=== PATIENT | female | born 1990 ===

== ENCOUNTER 2018-01-20 22:14 | Emergency (ER) | payer SELFPAY ==
[2018-01-20 22:14] VITALS: BMI 30.2
[2018-01-20 23:27] VITALS: BP 102/65; PULSE 68; RESP 18; TEMP 98.2; O2SAT 100
[2018-01-21 00:50] LABS: BASO % 0.9 % (0.0-2.0); EOS # 0.2 K/uL (0.0-0.7); EOS % 4.2 % (0.0-4.0); HEMOGLOBIN 11.3 g/dL (12.0-16.0); LYMPH % 40.1 % (20.0-40.0); MEAN CELL VOLUME 85.6 fl (81.0-99.0); MEAN CORPUSCULAR HEMOGLOBIN 28.3 pg (27.0-31.0); MEAN CORPUSCULAR HGB CONC 33.1 g/dL (33.0-37.0); MEAN PLATELET VOLUME 8.7 fl (7.2-11.7); MONO # 0.5 K/uL (0.0-0.8); MONO % 9.9 % (0.0-10.0); NEUT # 2.2 K/uL (1.8-7.0); NEUT % 44.9 % (50.0-75.0); NRBC % 0.1 % (0.0-0.0); RBC 3.97 Mil/uL (3.80-5.20); RED CELL DISTRIBUTION WIDTH 15.3 % (11.5-14.5); WHITE BLOOD COUNT 4.9 K/uL (4.8-10.8)
--- NOTE | 2018-01-21 00:56 | ED PDOC ---
HPI: Abdomen Time Seen by Provider: 01/20/18 23:45 Chief Complaint (Nursing): Abdominal Pain Chief Complaint (Provider): Abdominal pain History Per: Patient History/Exam Limitations: no limitations Onset/Duration Of Symptoms: Days, Intermittent Episodes Outside of [place] travel?: No Current Symptoms Are (Timing): Still Present Location Of Pain/Discomfort: LLQ Quality Of Discomfort: "Pain" Associated Symptoms: denies: Nausea, Vomiting, Diarrhea, Urinary Symptoms Additional History Per: Patient Additional Complaint(s): 27yo female, comes to ER reporting left sided abdominal pain, present intermittently x 3 days. She reports the pain is worse with certain movements. Otherwise, patient deneis any associated fever, chills, nausea, vomiting, diarrhea. She also denies any urinary symptoms, pelvic pain, vaginal bleeding or discharge. No additional complaints. PMD: None provided Abnormal Vaginal Bleeding: No Past Medical History Reviewed: Historical Data, Nursing Documentation, Vital Signs Vital Signs: Last Vital Signs Temp 98.2 F 01/20/18 23:25 Pulse 68 01/20/18 23:25 Resp 18 01/20/18 23:25 BP 102/65 01/20/18 23:25 Pulse Ox 100 01/20/18 23:25 - Medical History PMH: No Chronic Diseases - Surgical History Surgical History: (1) - Family History Family History: States: No Known Family Hx - Immunization History Hx Tetanus Toxoid Vaccination: No Hx Influenza Vaccination: No Hx Pneumococcal Vaccination: No - Home Medications Home Medications: Ambulatory Orders Medication Instructions Recorded Acetaminophen [Tylenol] 325 mg PO Q6 PRN #20 tab 12/07/14 RX: Bacitracin 1 gm TOP BID #1 tube 12/07/14 Ibuprofen [Motrin] 600 mg PO Q6 PRN #20 tab 06/10/17 Naproxen [Naprosyn] 500 mg PO Q12 #14 tab 01/21/18 - Allergies Allergies/Adverse Reactions: Allergies Allergy/AdvReac Type Severity Reaction Status Date / Time No Known Allergies Allergy Verified 01/20/18 23:25 Review of Systems ROS Statement: Except As Marked, All Systems Reviewed And Found Negative Constitutional: Negative for: Fever, Chills Gastrointestinal: Positive for: Abdominal Pain. Negative for: Nausea, Vomiting, Diarrhea Genitourinary Female: Negative for: Dysuria, Frequency, Hematuria, Vaginal Discharge, Vaginal Bleeding, Pelvic Pain Physical Exam - Reviewed Nursing Documentation Reviewed: Yes Vital Signs Reviewed: Yes - Physical Exam Appears: Positive for: Non-toxic, No Acute Distress Head Exam: Positive for: ATRAUMATIC, NORMAL INSPECTION, NORMOCEPHALIC Skin: Positive for: Normal Color, Warm, DRY Eye Exam: Positive for: Normal appearance Neck: Positive for: Normal, Painless ROM Cardiovascular/Chest: Positive for: Regular Rate, Rhythm Respiratory: Positive for: CNT, Normal Breath Sounds Gastrointestinal/Abdominal: Positive for: Soft, Tenderness (left lower quadrant tender to palpation). Negative for: Guarding, Rebound Back: Positive for: Normal Inspection. Negative for: L CVA Tenderness Extremity: Positive for: Normal ROM Neurologic/Psych: Positive for: Alert, Oriented. Negative for: Motor/Sensory Deficits - Laboratory Results Result Diagrams: 01/21/18 00:35 01/21/18 00:35 - ECG O2 Sat by Pulse Oximetry: 100 (RA) Pulse Ox Interpretation: Normal Medical Decision Making Medical Decision Making: Impression: 27yo female with left sided abdominal pain Plan: -- US Transvaginal -- Labs -- Toradol 30m IM -- ED Urine 0230 US Transvaginal Findings: The uterus is normal in size measuring 9x4.6x5.8 cm. Anteverted uterus. Endometrium is normal in thickness measuring 9.8 mm. Normal right ovary measuring 3x1.9x1.7 cm. The left ovary measures 2.9x2.5x1.7 cm 1.7 cm left ovarian cyst. Normal bilateral ovarian flow without evidence of ovarian torsion. Impression: Uncomplicated left ovarian cyst. Labs reviewed, patient with no clinically significant abnormalities. On reassessment, patient reports improvement in symptoms and is stable for discharge home. Diagnosis: Ovarian cyst Scribe Attestation: Documented by Adia Krishna, acting as a scribe for Kimo Whatley MD. Provider Scribe Attestation: All medical record entries made by the Scribe were at my direction and personally dictated by me. I have reviewed the chart and agree that the record accurately reflects my personal performance of the history, physical exam, medical decision making, and the department course for this patient. I have also personally directed, reviewed, and agree with the discharge instructions and disposition. Disposition - Clinical Impression Clinical Impression: Ovarian cyst - Disposition Referrals: [facility] [Outside] [facility] [Outside[facility] Disposition: Routine/Home Disposition Time: 02:34 Condition: STABLE Prescriptions: Naproxen [Naprosyn] 500 mg PO Q12 #14 tab Instructions: Ovarian Cysts Forms: [facility] (Divehi) Print Language: HEBREW
[2018-01-21 00:58] LABS: ALB/GLOB RATIO 1.2 (1.0-2.1); ALBUMIN 4.1 g/dL (3.5-5.0); ALT/SGPT 31 U/L (9-52); AST/SGOT 22 U/L (14-36); BLOOD UREA NITROGEN 16 mg/dl (7-17); CALCIUM 9.1 mg/dL (8.4-10.2); GFR NON-AFRICAN AMERICAN > 60
--- NOTE | 2018-01-21 07:55 | US ---
Date of service: 01/21/2018 HISTORY: LLQ pain COMPARISON: None available. TECHNIQUE: Transvaginal FINDINGS: UTERUS: Measures 9.0 x 4.6 x 5.8 cm. Normal in size and anteverted appearance appearance. No fibroid or other mass lesion seen. ENDOMETRIUM: Measures between 7 and 10 mm in diameter. Within normal limits. CERVIX: No cervical abnormality identified. RIGHT OVARY: Measures 3.0 x 1.9 x 1.7 cm. No solid mass. Normal flow. LEFT OVARY: Measures 2.9 x 2.5 x 1.7 cm. No solid mass. Normal flow. 1.7 x 1.2 x 1.2 cm benign physiologic appearing left ovarian follicular cyst. FREE FLUID: No significant free fluid noted. OTHER FINDINGS: None. IMPRESSION: Left ovarian follicular cyst measuring up to 1.7 cm-benign and physiologic appearing Concordant results (preliminary interpretation) provided by [facility].
== END 2018-01-21 03:24 | disposition home or self-care (01) ==
LOC: H.ER 22:14
DX: N83.202 Unspecified ovarian cyst, left side (principal); N85.4 Malposition of uterus
CPT/HCPCS: 76830; 80053; 81025; 85025; 99283; J1885

== ENCOUNTER 2018-02-22 00:55 | Emergency (ER) | payer SELFPAY ==
[2018-02-22 01:15] VITALS: BMI 31.2
[2018-02-22 01:19] VITALS: RESP 16; O2SAT 100
--- NOTE | 2018-02-22 01:45 | ED PDOC ---
HPI: Abdomen Time Seen by Provider: 02/22/18 01:32 Chief Complaint (Nursing): Abdominal Pain Chief Complaint (Provider): Lower abdominal pain History Per: Patient History/Exam Limitations: no limitations Onset/Duration Of Symptoms: Days Current Symptoms Are (Timing): Still Present Location Of Pain/Discomfort: LLQ Associated Symptoms: denies: Fever, Vomiting, Diarrhea, Loss Of Appetite, Back Pain, Chest Pain, Urinary Symptoms Additional Complaint(s): 27yo female comes to the ER for evaluation of left lower abdominal pain, present intermittently for the past 2 months. Patient was seen in this ER on 01/20 for the same symptoms, and was diagnosed with an ovarian cyst after an ultrasound. Patient states her current symptoms are unchanged from prior and she denies any associated fever/chills, nausea, vomiting, diarrhea, urinary symptoms, vaginal bleeding or discharge. Patient states she took 200mg of Motrin at 5pm with no relief of symptoms. PMD: None LMP: 02/06/18 Abnormal Vaginal Bleeding: No Past Medical History Reviewed: Historical Data, Nursing Documentation, Vital Signs Vital Signs: Last Vital Signs Temp 98.3 F 02/22/18 01:15 Pulse 70 02/22/18 01:15 Resp 16 02/22/18 01:15 BP 116/65 02/22/18 01:15 Pulse Ox 100 02/22/18 01:15 - Medical History PMH: No Chronic Diseases - Surgical History Surgical History: (1) - Family History Family History: States: No Known Family Hx - Home Medications Home Medications: Ambulatory Orders Medication Instructions Recorded Acetaminophen [Tylenol] 325 mg PO Q6 PRN #20 tab 12/07/14 RX: Bacitracin 1 gm TOP BID #1 tube 12/07/14 Ibuprofen [Motrin] 600 mg PO Q6 PRN #20 tab 06/10/17 Naproxen [Naprosyn] 500 mg PO Q12 #14 tab 01/21/18 RX: Naproxen 500 mg PO BID PRN #20 tab 02/22/18 - Allergies Allergies/Adverse Reactions: Allergies Allergy/AdvReac Type Severity Reaction Status Date / Time No Known Allergies Allergy Verified 02/22/18 01:15 Review of Systems ROS Statement: Except As Marked, All Systems Reviewed And Found Negative Constitutional: Negative for: Fever, Chills Gastrointestinal: Positive for: Abdominal Pain. Negative for: Nausea, Vomiting, Diarrhea Genitourinary Female: Negative for: Dysuria, Frequency, Vaginal Discharge, Vaginal Bleeding Physical Exam - Reviewed Nursing Documentation Reviewed: Yes Vital Signs Reviewed: Yes - Physical Exam Appears: Positive for: Non-toxic, No Acute Distress Head Exam: Positive for: NORMOCEPHALIC Skin: Positive for: Normal Color, Warm, Dry Eye Exam: Positive for: Normal appearance Neck: Positive for: Painless ROM, Supple Cardiovascular/Chest: Positive for: Regular Rate, Rhythm Respiratory: Positive for: Normal Breath Sounds Gastrointestinal/Abdominal: Positive for: Bowel Sounds (normal bowel sounds x 4), Soft, Tenderness (mild to left lower quadrant), Other (well healed scar noted to suprapubic region; no erythema, edema, warmth or tenderness noted). Negative for: Mass, Distended, Guarding, Rebound Back: Negative for: L CVA Tenderness, R CVA Tenderness, Vertebral Tenderness Extremity: Positive for: Normal ROM. Negative for: Deformity Lymphatic: Positive for: Normal Exam (no inguinal lymphadenopathy) Neurologic/Psych: Positive for: Alert, Oriented (x3), Gait (steady in ED). Negative for: Motor/Sensory Deficits, Aphasia, Facial Droop - Laboratory Results Urine POC: Negative - ECG O2 Sat by Pulse Oximetry: 100 (RA) Pulse Ox Interpretation: Normal Medical Decision Making Medical Decision Making: Impression: 27yo female with abdominal pain, consider ovarian cyst Plan: -- Urinalysis -- Upreg -- Toradol 30mg IM 0255 Upreg: negative U/A (-) nitrate (-) leukocyte On re-evaluation, patient reports improvement of symptoms. On exam, patient remains AAOx3, in no acute distress. Vitals stable. Lab/Diagnostic results d/w the patient in great detail. Diagnosis of ovarian cyst, abdominal pain d/w the patient. Based on history, exam and diagnostic results, plan will be for outpatient follow up with NEUROSURGERY PHYSICIAN. Patient instructed to follow-up with pmd / referral provided / the clinic in 1- 2 days without fail. Advised to take medication as prescribed. Return to the emergency room at any time for any new or worsening symptoms. Patient states she fully agrees with and understands discharge instructions. States that she agrees with the plan and disposition. Verbalized and repeated discharge instructions and plan. I have given the patient opportunity to ask any additional questions. Scribe Attestation: Documented by Adia Krishna, acting as a scribe for CHIDI Henry. Provider Scribe Attestation: All medical record entries made by the Scribe were at my direction and personally dictated by me. I have reviewed the chart and agree that the record accurately reflects my personal performance of the history, physical exam, medical decision making, and the department course for this patient. I have also personally directed, reviewed, and agree with the discharge instructions and disposition. Disposition - Clinical Impression Clinical Impression: Abdominal pain, Ovarian cyst - Patient ED Disposition Is Patient to be Admitted: No Counseled Patient/Family Regarding: Studies Performed, Diagnosis, Need For Followup, Rx Given - Disposition [facility]errals[facility] [Outside] Disposition: Routine/Home Disposition Time: 02:55 Condition: STABLE Additional Instructions: La atencin mdica de emergencia que recibi hoy se dirigi a hilton sntomas agudos. Si le recetaron algn medicamento, llnelo y tmelo segn las indicaciones. Los sntomas pueden tardar varios paiz en resolverse. Regrese al Departamento de Emergencias si hilton sntomas empeoran, no mejoran o si tiene otros problemas. Comunquese con hidalgo mdico dentro de 2 paiz para juan nueva evaluacin y honorio un seguimiento o llame a frank de los mdicos / clnicas a los que vanegas sido referido y que figuran en el formulario de Informacin de visita al paciente que se incluye en hidalgo paquete de isidoro. Lleve todos los documentos que le entregaron al momento del isidoro junto con todos los medicamentos que est tomando para hidalgo visita de seguimiento. Nuestro tratamiento no puede reemplazar la atencin mdica continua por parte de un proveedor de atencin primaria (PCP) fuera del departamento de emergencias. Prescriptions: RX: Naproxen 500 mg PO BID PRN #20 tab PRN Reason: Pain, Moderate (4-7) Instructions: Ovarian Cysts, Acute Abdomen (Belly Pain), Adult (DC) Forms: [employer] (Divehi) Print Language: MONGOLIAN - POA Present On Arrival: None Results - Lab Results Lab Results: 02/22/18 01:59 Urine Color Yellow Urine Clarity Cloudy Urine pH 5.0 Ur Specific [place] 1.033 H Urine Protein 30 Urine Glucose (UA) Neg Urine Ketones Trace Urine Blood Negative Urine Nitrate Negative Urine Bilirubin Negative Urine Urobilinogen 2.0 H Ur Leukocyte Esterase Neg Urine RBC (Auto) 5 H Urine Microscopic WBC < 1 Ur Squamous Epith Cells 11 H Urine Bacteria Rare
[2018-02-22 02:39] LABS: SQUAMOUS EPITHIAL 11 /hpf (0-5); URINE BACTERIA RARE (<OCC); URINE BILIRUBIN NEGATIVE (NEGATIVE); URINE BLOOD NEGATIVE (NEGATIVE); URINE CLARITY CLOUDY (Clear); URINE COLOR YELLOW (YELLOW); URINE GLUCOSE (UA) NEG (NEGATIVE); URINE LEUKOCYTE ESTERASE NEG Leu/uL (Negative); URINE PROTEIN 30 mg/dL (NEGATIVE)
[2018-02-22 05:42] VITALS: BP 110/70; PULSE 72; TEMP 98.5
== END 2018-02-22 03:05 | disposition home or self-care (01) ==
LOC: H.ER 00:55
DX: R10.9 Unspecified abdominal pain (principal); N83.209 Unspecified ovarian cyst, unspecified side
CPT/HCPCS: 81003; 81025; 96372; 99283; J1885